=== PATIENT | female | born 1955 | race Caucasian/White ===

== ENCOUNTER → 2019-05-07 | Outpatient (CLI) | payer OTHER ==
--- NOTE | 2019-05-07 15:07 | CARD ---
MR#: [id number] Date of Study: 05/07/2019 Ordering Physician: ED ALEXANDRA, Referring Physician: ED ALEXANDRA, Tech: Archana Vasquez APPROVED REPORT EXAM: Two-dimensional and M-mode echocardiogram with Doppler and color Doppler. Other Information Quality : GoodHR: 69bpm INDICATION Arrhythmia 2D DIMENSIONS RVDd2.4 (2.9-3.5cm)Left Atrium(2D)3.0 (1.6-4.0cm) IVSd0.8 (0.7-1.1cm)Aortic Root(2D)2.9 (2.0-3.7cm) LVDd4.7 (3.9-5.9cm)LVOT Diameter1.9 (1.8-2.4cm) PWd0.7 (0.7-1.1cm)LVDs3.2 (2.5-4.0cm) FS (%) 32.1 %SV62.6 ml LVEF(%)60.2 (>50%) Aortic Valve AoV Peak Mirza.155.1cm/sAoV VTI39.6cm AO Peak GR.9.6mmHgLVOT Peak Mirza.94.3cm/s LVOT VTI 23.89cmAO Mean GR.5mmHg KANWAL (VMAX)1.84sf0YDS (VTI)1.68cm2 AI P 1/2 [id number] Mitral Valve MV E Mpkkkmrh068.9cm/sMV DECEL IIAR130fh MV A [place]73.3cm/sE/A Ratio1.4 Pulmonary Valve PV Peak Jhmfbjrz61.4cm/sPV Peak Grad.3mmHg Tricuspid Valve TR P. Tqikncbc648oz/sRAP [id number] TR Peak Gr.62nxDqAWDQ89vhZq Pulmonary Vein S1 Vmfadwfv34.1cm/sD2 Fbfybwbs12.9cm/s LEFT VENTRICLE The left ventricle is normal size. There is normal left ventricular wall thickness. The left ventricu lar systolic function is normal and the ejection fraction is within normal range. The Ejection Fracti on is 50-55%. There is normal LV segmental wall motion. The left ventricular diastolic function and f illing is normal for age. RIGHT VENTRICLE The right ventricle is normal size. There is normal right ventricular wall thickness. The right ventr icular systolic function is normal. ATRIA The left atrium size is normal. The right atrium size is normal. The interatrial septum is intact wit h no evidence for an atrial septal defect or patent foramen ovale as noted on 2-D or Doppler imaging. AORTIC VALVE The aortic valve is normal in structure and function. Doppler and Color Flow revealed mild aortic reg urgitation. There is no significant aortic valvular stenosis. MITRAL VALVE The mitral valve is normal in structure and function. There is no evidence of mitral valve prolapse. There is no mitral valve stenosis. Doppler and Color-flow revealed trace mitral regurgitation. TRICUSPID VALVE The tricuspid valve is normal in structure and function. Doppler and Color Flow revealed trace tricus pid regurgitation with an estimated PAP of 23 mmHg. There is no tricuspid valve stenosis. PULMONIC VALVE The pulmonic valve is not well visualized. Doppler and Color Flow revealed trace to mild pulmonic ajay vular regurgitation. There is no pulmonic valvular stenosis. GREAT VESSELS The aortic root is normal in size. The IVC is normal in size and collapses >50% with inspiration. PERICARDIAL EFFUSION There is no evidence of significant pericardial effusion. Critical Notification Critical Value: No <Conclusion> The left ventricular systolic function is normal and the ejection fraction is within normal range. Th e Ejection Fraction is 50-55%. There is normal LV segmental wall motion. Doppler and Color Flow revealed mild aortic regurgitation. Signed by : Rickey Gill, Electronically Approved : 05/07/2019 15:07:05
== END | disposition home or self-care (01) ==
LOC: ECHO 13:35
PROVIDERS: ATTEND Physician Assistant
DX: I08.8 Other rheumatic multiple valve diseases (principal)
CPT/HCPCS: 93306